=== PATIENT | female | born 1950 | race Two or more races ===

== ENCOUNTER 2024-12-25 16:31 | Emergency (ER) | payer OTHER, MEDICAID ==
[~2024-12-25] VITALS: Ht 154.9 cm; Wt 59.0 kg
--- NOTE | 2024-12-25 17:13 | ED.PDOC ---
SOB-HPI HPI Comments 74 year old female presents to the ED with chief complaint of SOB. Patient reports that she was seen in an ER on Monday for SOB and was discharged at the time. Patient relays that she followed up with PCP today and was advised to come back to the ED for possible pulmonary embolism. Patient states she is unsure why there is worry for it as it was not explained to her. Patient denies any chest pain, cough, dizziness, fever, chills, N/V, or abdominal pain. 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 Family History Family History: Reviewed,noncontributory to illness Social History Smoker: Non-Smoker Alcohol: Denies ETOH Use Drugs: Denies Drug Use Lives In: Home Constitutional: denies: chills, diaphoresis, fatigue, fever, malaise, sweats, weakness, others EENTM: denies: blurred vision, double vision, ear bleeding, ear discharge, ear drainage, ear pain, ear ringing, eye pain, eye redness, hearing loss, mouth pain, mouth swelling, nasal discharge, nose bleeding, nose congestion, nose pain, photophobia, tearing, throat pain, throat swelling, voice changes, others Respiratory: reports: shortness of breath; denies: cough, hemoptysis, orthopnea, SOB at rest, SOB with excertion, stridor, wheezing, others Cardiovascular: denies: chest pain, dizzy spells, diaphoresis, Dyspnea on exertion, edema, irregular heart beat, left arm pain, lightheadedness, palpitations, PND, syncope, others Gastrointestinal: denies: abdomen distended, abdominal pain, blood streaked bowels, constipated, diarrhea, dysphagia, difficulty swallowing, hematemesis, melena, nausea, poor appetite, poor fluid intake, rectal bleeding, rectal pain, vomiting, others Genitourinary: denies: abnormal vagina bleeding, burning, dyspareunia, dysuria, flank pain, frequency, hematuria, incontinence, pain, , vagina discharge, urgency, others Neurological: denies: dizziness, fainting, headache, left sided numbness, left sided weakness, numbness, paresthesia, pre-existing deficit, right sided numbness, right sided weakness, seizure, speech problems, tingling, tremors, weakness, others Musculoskeletal: denies: back pain, gout, joint pain, joint swelling, muscle pain, muscle stiffness, neck pain, others Integumetry: denies: bruises, change in color, change in hair/nails, dryness, laceration, lesions, lumps, rash, wounds, others Allergic/Immunocompromised: denies: Difficulty Healing, Frequent Infections, Hives, Itching, others Hematologic/Lymphatic: denies: anemia, blood clots, easy bleeding, easy bruising, swollen glands, others Endocrine: denies: excessive hunger, excessive sweating, excessive thirst, excessive urination, flushing, intolerance to cold, intolerance to heat, unexplained weight gain, unexplained weight loss, others Psychiatric: denies: anxiety, bipolar disorder, depression, hopeless, panic disorder, schizophrenia, sleepless, suicidal, others All Other Systems: Reviewed and Negative Physical Exam General Appearance: No Apparent Distress, Normal HEENT: Normal ENT Inspection, Pharynx Normal, TMs Normal Neck: Full Range of Motion, Non-Tender, Normal, Normal Inspection Respiratory: Chest Non-Tender, Lungs Clear, No Accessory Muscle Use, No Respiratory Distress, Normal Breath Sounds Cardiovascular: No Edema, No JVD, No Murmur, No Gallop, Normal Peripheral Pulses, Regular Rate/Rhythm Breast Exam: Deferred Gastrointestinal: No Organomegaly, Non Tender, No Pulsatile Mass, Normal Bowel Sounds, Soft Genitalia: Deferred Pelvic: Deferred Rectal: Deferred Extremities: No calf tenderness, Normal capillary refill, Normal inspection, Normal range of motion, Non-tender, No pedal edema Musculoskeletal : Apperance: Normal Neurologic: Alert, 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 Was a procedure done?: No Differential Dx Differential Diagnosis: Pneumonia, Pulmonary Embolism X-Ray, Labs, Meds, VS Vital Signs Date Time Temp Pulse Resp B/P (MAP) Pulse Ox O2 Delivery O2 Flow Rate FiO2 12/25/24 18:45 Room Air* 0 21 12/25/24 17:05 98.6 71 16 179/80 (113) 97 98.6 12/25/24 16:51 69 Lab Test 12/25/24 18:18 12/25/24 17:20 Range/Units Troponin I High Sensitivity 9 9 </=34 ng/L White Blood Count 7.0 4.4-10.8 10^3/uL Red Blood Count 5.06 4.0-5.20 10^6/uL Hemoglobin 14.0 12.2-16.2 g/dL Hematocrit 40.9 36.0-46.0 % Mean Corpuscular Volume 80.7 80.0-100.0 fL Mean Corpuscular Hemoglobin 27.7 L 28.0-32.0 pg Mean Corpuscular Hemoglobin Concent 34.3 32.0-36.0 g/dL Red Cell Distribution Width 14.9 H 11.8-14.3 % Platelet Count 210 140-450 10^3/uL Mean Platelet Volume 8.4 6.9-10.8 fL Neutrophils (%) (Auto) 67.4 37.0-80.0 % Lymphocytes (%) (Auto) 20.0 10.0-50.0 % Monocytes (%) (Auto) 6.6 0.0-12.0 % Eosinophils (%) (Auto) 5.6 0.0-7.0 % Basophils (%) (Auto) 0.4 0.0-2.0 % Neutrophils # (Auto) 4.7 1.6-8.6 10 ^3/uL Lymphocytes # (Auto) 1.4 0.4-5.4 10 ^3/uL Monocytes # (Auto) 0.5 0-1.3 10 ^3/uL Eosinophils # (Auto) 0.4 0-0.8 10 ^3/uL Basophils # (Auto) 0 0-0.2 10 ^3/uL Nucleated Red Blood Cells 0.1 % D-Dimer, Quantitative 1.06 H 0.0-0.49 mg/L FEU Sodium Level 139 136-145 mmol/L Potassium Level 3.7 3.5-5.1 mmol/L Chloride Level 104 98-107 mmol/L Carbon Dioxide Level 25 20-31 mmol/L Anion Gap 10 5-15 Blood Urea Nitrogen 14 9-23 mg/dL Creatinine 0.80 0.550-1.02 mg/dL Glomerular Filtration Rate Calc 77 >90 mL/min BUN/Creatinine Ratio 17.5 10.0-20.0 Serum Glucose 112 H 74-106 mg/dL Calcium Level 9.9 8.7-10.4 mg/dL B-Type Natriuretic Peptide 56.42 0-100 pg/mL PATIENT: JOSEMANUEL WOOD ACCT: [id number] UNIT: [id number] : 1950 LOC: ER ROOM / BED: / AGE / SEX: 74 / F ADM STATUS: REG ER SERVICE [id number] ORDERING PHYSICIAN: KUSH QUINTANILLA MD PROCEDURE(s): CXRP - CHEST PORTABLE REASON: sob ORDER NUMBER(s): [id number], ACCESSION NUMBER(s): [id number] INDICATION: sob TECHNIQUE: Frontal view of the chest. COMPARISON: None FINDINGS: Findings:. The heart and mediastinal contours are grossly unremarkable. There is no evidence of pleural disease. The lungs are clear. Elevation of the right hemidiaphragm. The bony structures of the chest are intact without fracture. There is mild dextroscoliosis of the lower thoracic spine. Tacking device seen in the right humeral head. There is mild osteopenia. IMPRESSION: 1. No evidence of acute disease. Time of 1ST Reevaluation: 18:10 Reevaluation 1ST: Unchanged Patient Education/Counseling: Diagnosis, Treatment Family Education/Counseling: No Family Present Additional Information Reviewed patient's previous visit(s): None The following tests were ordered, and results were reviewed by me: CXR, Troponin, CBC, BMP, D-Dimer, BNP Additional information was gathered from interviewing the following independent historian: None I reviewed and agreed with the following test results read by other provider: CXR I discussed treatments and results with medical personnel and: PATIENT Comprehensive systems review obtained and negative except for what is stated in the HPI. Departure 1 Departure Time of Disposition: 20:22 (Patient's workup is benign. We will discharge patient home with outpatient follow up) Impression: Primary Impression: Rib pain on right side Disposition: 01 HOME / SELF CARE / HOMELESS Condition: Stable Additional Instructions: Your workup today was benign including normal labs and CT scan. For pain you can take the followinam: Ibuprofen 400mg with food Noon: Acetaminophen 1000mg 4pm: Ibuprofen 400mg with food 8pm: Acetaminophen 1000mg You should follow up with your regular doctor within one week to ensure you are doing better. If your symptoms worsen or you have any other concerns then please return to the ER. Discharged With: Self Critical Care Note Critical Care Time?: No Stability Stability form required: No Heart Score Heart Score: Heart Score Response (Comments) Value History N/A 0 EKG N/A 0 Age N/A 0 Risk Factors N/A 0 Troponin N/A 0 Total 0 I personally scribed for KUSH QUINTANILLA MD ([email or web address]) on 12/25/24 at 17:13. Electronically submitted by Cleveland Hurley ([email or web address]). I personally scribed for KUSH QUINTANILLA MD ([email or web address]) on 12/25/24 at 18:21. Electronically submitted by Torey Hodgson ([email or web address]). KUSH QUINTANILLA MD December 25, 2024 17:13
--- NOTE | 2024-12-25 17:29 | DVH ---
INDICATION: sob TECHNIQUE: Frontal view of the chest. COMPARISON: None FINDINGS: Findings:. The heart and mediastinal contours are grossly unremarkable. There is no evidence of pleu ral disease. The lungs are clear. Elevation of the right hemidiaphragm. The bony structures of the chest are intact without fracture. There is mild dextroscoliosis of the lower thoracic spine. Tacking device seen in the right humeral head. There is mild osteopenia. IMPRESSION: 1. No evidence of acute disease.
[2024-12-25 17:47] LABS: Basophils # (auto) 0 10 ^3/uL (0-0.2); Basophils % (auto) 0.4 % (0.0-2.0); Eosinophils # (auto) 0.4 10 ^3/uL (0-0.8); Eosinophils % (auto) 5.6 % (0.0-7.0); Hematocrit 40.9 % (36.0-46.0); Lymphocytes # (auto) 1.4 10 ^3/uL (0.4-5.4); Mean Corpuscular Hemoglobin 27.7 pg (28.0-32.0); Mean Corpuscular Hgb Conc. 34.3 g/dL (32.0-36.0); Mean Corpuscular Volume 80.7 fL (80.0-100.0); Monocytes # (auto) 0.5 10 ^3/uL (0-1.3); Monocytes % (auto) 6.6 % (0.0-12.0); Neutrophils # (auto) 4.7 10 ^3/uL (1.6-8.6); Neutrophils % (auto) 67.4 % (37.0-80.0); Nucleated Red Blood Cells % 0.1 %; Platelet Count (auto) 210 10^3/uL (140-450); Red Blood Cells 5.06 10^6/uL (4.0-5.20); Red Cell Distribution Width 14.9 % (11.8-14.3)
[2024-12-25 18:13] LABS: Chloride 104 mmol/L (98-107); Potassium 3.7 mmol/L (3.5-5.1); Sodium 139 mmol/L (136-145)
[2024-12-25 18:14] LABS: Anion Gap 10 (5-15); Calcium 9.9 mg/dL (8.7-10.4); Carbon Dioxide 25 mmol/L (20-31)
[2024-12-25 18:19] LABS: BUN/Creatinine Ratio 17.5 (10.0-20.0); Blood Urea Nitrogen 14 mg/dL (9-23)
[2024-12-25 18:20] LABS: Glucose 112 mg/dL (74-106)
--- NOTE | 2024-12-25 20:18 | DVH ---
CTA Chest with intravenous contrast INDICATION: sob, elevated ddimer COMPARISON: None TECHNIQUE: Multidetector spiral CTA of the chest was performed of the chest with intravenous contrast . PULMONARY ANGIOGRAPHY PROTOCOL was utilized using a bolus-tracking technique centered on the main p ulmonary artery. Axial, coronal and sagittal multiplanar and MIP reformats were performed. Radiation Dose : 1. Chest: CTDI volume is 14.8 mGy. Dose-length product is 369.98 mGy*cm The dose indicators for CT are the volume Computed Tomography (CT) Dose Index (CTDIvol) and the Dose Length Product (DLP), and are measured in units of mGy and mGy-cm, respectively. These indicators are not patient dose, but values generated from the CT scanner acquisition factors. The report includes radiation exposure data for exposures received during this examination. Findings: Pulmonary artery: No pulmonary embolism Lower neck: Normal thyroid. Lungs: No focal consolidation, pleural effusion or pneumothorax. Heart/Vascular Structures: Normal heart size. No pericardial effusion. Lymph Nodes: Multiple prominent mediastinal lymph nodes are seen, for example a right paratracheal ly mph node measuring up to 1.1 cm. Pleura: No pleural effusion or significant pneumothorax. Musculoskeletal: No acute osseous abnormality. Soft tissues: Normal. Upper abdomen: Limited portions of the upper abdomen are unremarkable. IMPRESSION: 1. No pulmonary embolism. 2. No acute thoracic finding. 3. Mediastinal lymphadenopathy, nonspecific.
[2024-12-25] MEDS: IOHEXOL 350 MG/ML 100ML IJ ONE (20:29)
[2024-12-25 20:44] VITALS: BP 145/68; PULSE 67; RESP 20; TEMP 98; O2SAT 96
--- NOTE | 2025-01-02 14:08 | ECG ---
[facility] Test Date: 2024-12-25 Test Time: 16:51:29 Pat Name: JOSEMANUEL WOOD Department: ER Room: Gender: F Practicing Md Anesthesiologist: JAGDEEP : 1950 Requested By: KUSH QUINTANILLA Order Number: [id number] Reading MD: Ras Ashraf Measurements Intervals [place] Rate: 69 P: 40 WV: 181 QRS: -61 QRSD: 94 T: 50 QT: 437 QTc: 469 Interpretive Statements Sinus rhythm Left anterior fascicular block Low voltage, precordial leads Abnormal R-wave progression, late transition LVH by voltage Borderline T abnormalities, anterior leads Electronically Signed On 01-05-2025 21:35:13 PDT by Ras Ashraf Please click the below link to view image of tracing.
== END 2024-12-25 20:45 | disposition home or self-care (01) ==
LOC: ER 16:31
DX: R07.81 Pleurodynia (principal); R06.02 Shortness of breath
CPT/HCPCS: 36415; 71045; 71275; 80048; 83880; 84484; 85025; 85379; 93005; 99285; Q9967

== ENCOUNTER 2025-04-11 19:14 | Emergency (ER) | payer OTHER, MEDICAID ==
[~2025-04-11] VITALS: Ht 154.9 cm; Wt 56.9 kg
[2025-04-11] MEDS: HYDROcodone-ACET 5/325MG TAB PO ONE (20:49)
--- NOTE | 2025-04-11 20:55 | DVH ---
EXAM: CT CERVICAL WITHOUT CONTRAST INDICATION: STATUS POST FALL NECK PAIN EXAM DATE: 04/11/2025 08:13 PM COMPARISON: CT HEAD WITHOUT CONTRAST on DOS: 04/11/25, US CAROTID DUPLX W COLOR DOP on DOS: 11/12/24, CT HEAD WITHOUT CONTRAST on DOS: 08/28/24 TECHNIQUE: Multiple axial CT images of the cervical spine were obtained using bone algorithm. Axial a nd coronal reformatting was done. Bone and soft tissue windows were reviewed. Radiation Dose Information: CT Dose: CTDI volume is 14.38 mGy. Dose-length product is 389.86 mGy*cm FINDINGS: The cervical alignment is intact. No acute cervical spine fracture is identified. The vertebral body heights are intact. No suspicious osseous lesions are identified. No significant degenerative changes are identified. There is no prevertebral soft tissue swelling. IMPRESSION: 1. No evidence of acute cervical spine fracture or traumatic malalignment. All CT scans at this medical facility are performed using dose modulation techniques as appropriate t o a performed exam including the following: Automated exposure control was utilized; adjustment of th e MA and/or KV according to patient size; and use of iterative reconstruction technique.
--- NOTE | 2025-04-11 20:58 | DVH ---
EXAM: CT HEAD WITHOUT CONTRAST INDICATION: STATUS POST FALL TECHNIQUE: CT of the head without intravenous contrast. Radiation Dose Information: CT Dose: CTDI volume is 56.84 mGy. Dose-length product is 1006 0.4 mGy*cm The dose indicators for CT are the volume Computed Tomography (CT) Dose Index (CTDIvol) and the Dose Length Product (DLP), and are measured in units of mGy and mGy-cm, respectively. These indicators are not patient dose, but values generated from the CT scanner acquisition factors. The report includes radiation exposure data for exposures received during this examination. COMPARISON: CT CERVICAL WITHOUT CONTRAST on DOS: 04/11/25, CT HEAD WITHOUT CONTRAST on DOS: 08/28/24 FINDINGS: There is no evidence of acute intracranial hemorrhage, extra-axial collection, mass effect, midline s hift, herniation or hydrocephalus. The ventricles, sulci and cisterns are age appropriate. The jackson-white differentiation is intact. Patchy periventricular and subcortical white matter hypoattenuation is nonspecific but may be related to small vessel ischemic disease. The visualized paranasal sinuses and mastoid air cells are clear. The surrounding soft tissues and osseous structures are unremarkable. IMPRESSION: 1. No acute intracranial hemorrhage 2. No displaced skull fracture 3. No territorial ischemia.
--- NOTE | 2025-04-11 21:19 | ED.PDOC ---
Paulina. trauma (HPI) HPI Comments PT PRESENTED TO THE ER S/P MECHANICAL FALL. PT REPORTS THAT SHE HIT HER HEAD ON A WALL, DENIES ANY LOC, NUMBNESS, WEAKNESS, NECK PAIN, BLURRY VISION OR SLURRED SPEECH DENIES ANY USE OF BLOOD THINNERS. 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 History Family History Family History: Reviewed,noncontributory to illness Social History Smoker: Non-Smoker Alcohol: Denies ETOH Use Drugs: Denies Drug Use Lives In: Home All Other Systems: Reviewed and Negative (SEE HPI) Physical Exam General Appearance: No Apparent Distress, Normal HEENT: Normal ENT Inspection, Pharynx Normal, TMs Normal Neck: Limited Range of Motion, Tender Lateral Respiratory: Chest Non-Tender, Lungs Clear, No Respiratory Distress, Normal Breath Sounds Cardiovascular: No Edema, No JVD, No Murmur, No Gallop, Normal Peripheral Pulses, Regular Rate/Rhythm Breast Exam: Deferred Gastrointestinal: No Organomegaly, Non Tender, No Pulsatile Mass, Normal Bowel Sounds, Soft Genitalia: Deferred Pelvic: Deferred Rectal: Deferred Extremities: Normal capillary refill, Normal range of motion, Non-tender, No pedal edema Musculoskeletal : Apperance: Normal Neurologic: Alert, No Motor Deficits, Normal Affect, Normal Mood, No Sensory Deficits Cerebellar Function: Normal Reflexes: Normal Skin: Dry, Normal Color, Warm Lymphatic: No Adenopathy Was a procedure done? Was a procedure done?: No Differential Diagnosis Multiple Trauma: Closed Head Injury, Fractures, Spine Injury Neck Injury: Cervical Muscle Spasm, Cervical Sprain, Cervical Strain X-Ray, Labs, Meds, VS Vital Signs Date Time Temp Pulse Resp B/P (MAP) Pulse Ox O2 Delivery O2 Flow Rate FiO2 04/11/25 21:28 57 15 97 Room Air 04/11/25 21:28 98.0 57 15 151/55 (87) 97 98.0 04/11/25 19:15 97.5 73 16 180/84 97.5 X-Ray, Labs, Meds, VS Comment FINDINGS: The cervical alignment is intact. No acute cervical spine fracture is identified. The vertebral body heights are intact. No suspicious osseous lesions are identified. No significant degenerative changes are identified. There is no prevertebral soft tissue swelling. IMPRESSION: 1. No evidence of acute cervical spine fracture or traumatic malalignment. IMPRESSION: 1. No acute intracranial hemorrhage 2. No displaced skull fracture 3. No territorial ischemia. CT head and neck negative. Patient acting appropriately requesting discharge at this time. Advised to monitor for the next 24-48 hours likely concussion return to the ER for increasing pain nonstop vomiting blurry vision slurred speech neuro deficits lethargy or any concerning symptoms. Advised to rest increase p.o. fluids with electrolytes light diet for the next day or two. ER return precautions given patient indicates understanding and agrees with discharge plan of care. Time of 1ST Reevaluation: 19:30 Reevaluation 1ST: Unchanged Time of 2ND Reevaluation: 21:18 Reevaluation 2ND: Improved Patient Education/Counseling: Diagnosis, Treatment, Prognosis, Need For Follow Up Family Education/Counseling: No Family Present Departure 1 Departure Time of Disposition: 21:18 Impression: Primary Impression: Head trauma Qualified Codes: S09.90XA - Unspecified injury of head, initial encounter Additional Impression: Whiplash injury Qualified Codes: S13.4XXA - Sprain of ligaments of cervical spine, initial encounter Disposition: 01 HOME / SELF CARE / HOMELESS Condition: Stable Discharged With: Spouse Critical Care Note Critical Care Time?: No Stability Stability form required: ANIYA Rankin Apr 11, 2025 21:19
[2025-04-11 21:28] VITALS: BP 151/55; PULSE 57; RESP 15; TEMP 98; O2SAT 97
== END 2025-04-11 21:30 | disposition home or self-care (01) ==
LOC: ER 19:16
DX: S13.4XXA Sprain of ligaments of cervical spine, initial encounter (principal); S09.8XXA Other specified injuries of head, initial encounter; W22.8XXA Striking against or struck by other objects, initial encounter; Y93.89 Activity, other specified; Y92.89 Other specified places as the place of occurrence of the external cause; Y99.8 Other external cause status
CPT/HCPCS: 70450; 72125